=== PATIENT | female | born 1935 | race Caucasian/White ===

== ENCOUNTER 2019-03-28 16:33 | Emergency (ER) | payer OTHER ==
[~2019-03-28] VITALS: Ht 160 cm; Wt 68.0 kg
[2019-03-28 16:36] VITALS: BP 198/94
[2019-03-28] MEDS ORDERED: CARDIZEM CD120 MG PO (17:26)
[2019-03-28] MEDS ORDERED: SYNTHROID100 MC1 PO (17:26)
[2019-03-28] MEDS ORDERED: ZIAC 10-6.25 M1 EACH PO (17:27)
== END 2019-03-28 17:30 | disposition home or self-care (01) ==
LOC: ER 16:33
DX: S01.111A Laceration without foreign body of right eyelid and periocular area, initial encounter (principal); S09.90XA Unspecified injury of head, initial encounter; W01.0XXA Fall on same level from slipping, tripping and stumbling without subsequent striking against object, initial encounter; Y93.89 Activity, other specified; Y92.89 Other specified places as the place of occurrence of the external cause; Y99.8 Other external cause status